=== PATIENT | male | born 1995 | race Caucasian/White ===

== ENCOUNTER → 2022-06-16 | Emergency (ER) | payer SELFPAY ==
[~2022-06-16] MED LIST: OXYC-128 PO
--- NOTE | 2022-06-16 20:58 | NUR ---
Pt not in waiting room.
== END | disposition left against medical advice (07) ==
LOC: ER 20:10
DX: Z53.21 Procedure and treatment not carried out due to patient leaving prior to being seen by health care provider (principal)